=== PATIENT | female | born 1960 | race African-American/Black ===

== ENCOUNTER 2022-11-16 12:47 | Emergency (ER) | payer MEDICAID ==
[~2022-11-16] VITALS: Ht 182.9 cm; Wt 142.0 kg
[2022-11-16 13:08] VITALS: TEMP 98.5; O2SAT 100
[2022-11-16 15:55] VITALS: BP 135/77; PULSE 78; RESP 16
== END 2022-11-16 15:56 | disposition home or self-care (01) ==
LOC: ER 12:47
DX: M79.676 Pain in unspecified toe(s) (principal); F41.9 Anxiety disorder, unspecified; F32.9 Major depressive disorder, single episode, unspecified; I10 Essential (primary) hypertension
CPT/HCPCS: 99281

== ENCOUNTER 2024-10-23 19:39 | Emergency (ER) | payer BC ==
[~2024-10-23] VITALS: Ht 182.9 cm; Wt 160.0 kg
[2024-10-23 19:42] VITALS: O2SAT 98
[2024-10-23] MEDS: HYDROCODONE/ACETAMINOPHEN 10/325MG TABLET PO ONE (22:08)
[2024-10-23] MEDS ORDERED: HYDR-4009 MT (23:21)
[2024-10-23 23:33] VITALS: BP 158/82; PULSE 61; RESP 18; TEMP 36.5; O2SAT 95
== END 2024-10-23 23:39 | disposition home or self-care (01) ==
LOC: ER 19:39
DX: K08.89 Other specified disorders of teeth and supporting structures (principal); I10 Essential (primary) hypertension; Z79.899 Other long term (current) drug therapy
CPT/HCPCS: 99283